=== PATIENT | female | born 1975 | race Caucasian/White ===

== ENCOUNTER 2016-11-04 13:21 | Emergency (ER) | payer OTHER ==
[~2016-11-04] VITALS: Ht 162.6 cm; Wt 78.0 kg
[2016-11-04 13:32] VITALS: BP 122/46
--- NOTE | 2016-11-04 13:40 | NUR ---
PT AMBULATED TO BED 7
--- NOTE | 2016-11-04 13:40 | NUR ---
PATIENT PRESENTS TO ED WITH C/O 95 LBS. DOG LANDED ON HER LT. SHOULDER LAST SUNDAY. WORKS AT A [employer]. DENIES FALL; DENIES N/V/D; SKIN IS PINK/WARM/DRY; AAOX4 WITH EVEN AND STEADY GAIT; LUNGS CLEAR BL; HR EVEN AND REGULAR; PT DENIES ANY FEVER, CP, SOB, OR COUGH AT THIS TIME; PATIENT STATES PAIN OF 8/10 AT THIS TIME; VSS; PATIENT POSITIONED FOR COMFORT; HOB ELEVATED; BEDRAILS UP X2; BED DOWN. ER MD MADE AWARE OF PT STATUS.
--- NOTE | 2016-11-04 13:45 | NUR ---
PATIENT BEING EVALUATED BY DR. BECKER.
[2016-11-04 15:07] VITALS: BP 116/76
--- NOTE | 2016-11-04 15:07 | NUR ---
Patient discharged with v/s stable. Written and verbal after care instructions given and explained. Patient verbalized understanding. Ambulatory with steady gait. All questions addressed prior to discharge. Advised to follow up with PMD.
== END 2016-11-04 15:07 | disposition home or self-care (01) ==
LOC: MED 13:21
DX: S43.402A Unspecified sprain of left shoulder joint, initial encounter (principal); S20.212A Contusion of left front wall of thorax, initial encounter; W54.1XXA Struck by dog, initial encounter; Y93.89 Activity, other specified; Y92.89 Other specified places as the place of occurrence of the external cause; Y99.8 Other external cause status
CPT/HCPCS: 73000; 73030; 99284